=== PATIENT | female | born 1995 ===

== ENCOUNTER 2016-10-21 00:42 | Emergency (ER) | payer OTHER ==
[~2016-10-21] VITALS: Ht 172.7 cm; Wt 70.3 kg
[2016-10-21 00:56] VITALS: TEMP 36.7; Ht 172.7 cm; Wt 70.3 kg
[2016-10-21] MEDS ORDERED: XYLOCAINE 1%/SOD BICARB 20 ML VIAL INFIL ONE (01:15)
[2016-10-21] MEDS ORDERED: BCPILLS PO (01:24)
[2016-10-21 02:28] VITALS: BP 113/68; PULSE 53; O2SAT 99
--- NOTE | 2016-10-21 06:14 | EMERGENCY ROOM VISIT NOTE ---
ED Visit Note First contact with patient: 01:10 CHIEF COMPLAINT: Leg laceration HISTORY OF PRESENT ILLNESS: This 21-year-old female patient presents to the emergency department after cutting her left leg about one hour ago. The patient states that she had a switch blade in her pocket that engaged and cut through her clothing into her left leg. The bleeding has stopped. Denies weakness or numbness of the leg. The patient states that she took a picture of this and send it to her father who is a neurosurgeon in [place]. He felt it may need stitches and referred her to the ER. The patient rates the pain as dull and 4/10. The patient denies any other injuries. The patient's Tetanus shot is reportedly up to date. REVIEW OF SYSTEMS: A 6 system review of systems was completed with positives and pertinent negatives listed in the HPI. ALLERGIES: No known allergies MEDICATIONS: No chronic medications PMH: Otherwise healthy SOCIAL HISTORY: Student and lives locally PHYSICAL EXAM: Vital Signs: Reviewed Nurse's notes, vital signs stable. GENERAL : White female, in no acute distress, well-developed, well-nourished. SKIN: There is a 1.0 cm long laceration on the proximal aspect of the left thigh. The edges gape apart with traction. There is no foreign material in the wound and it looks clean. There is no significant bleeding. No deep structures such as tendons, bones, or significant blood vessels are seen in the base of the wound. Normal strength and movement of the left lower extremity. Capillary refill less than 2 seconds. Normal sensation to light and sharp touch. EMERGENCY DEPARTMENT COURSE: I examined the patient. Verbal consent was obtained to perform the procedure. Using sterile technique the wound was cleansed with Betadine. The area was sterilely draped. 3 ml of 1% buffered lidocaine was used to anesthetize the laceration on the left leg. Once the patient was anesthetized, the wound was copiously irrigated under pressure with sterile saline. The wound was explored and was as described above. The laceration was repaired using 2 simple interrupted 4-0 nylon sutures with the wound edges being well approximated. The patient tolerated the procedure well. Hemostasis was achieved. The area was cleaned with sterile saline and dressed with bacitracin ointment and bandage. Current/Historical Medications Scheduled Control Pills ( Control Pills), 1 TAB PO DAILY Allergies Coded Allergies: No Known Allergies (Unverified , 10/21/16) Vital Signs Date Time Temp Pulse Resp B/P Pulse Ox O2 Delivery O2 Flow Rate FiO2 10/21/16 02:28 53 18 113/68 99 10/21/16 00:56 36.7 63 16 124/68 100 Room Air Medications Administered Medications (Trade) Dose Ordered Sig/Joanna Route Start Time Stop Time Status Last Admin Dose Admin Lidocaine HCl (Buffered Lidocaine 1% Inj) 20 ml NOW ONCE INFIL 10/21/16 01:15 10/21/16 01:16 DC 10/21/16 01:36 20 ML Departure Information Impression Primary Impression: Laceration of leg Dispostion Home / Self-Care Condition GOOD Forms HOME CARE DOCUMENTATION FORM, IMPORTANT VISIT INFORMATION Patient Instructions My [facility], ED Scar Tips to Minimize Additional Instructions Keep wound clean and dry. Do not allow any crusting or dried blood to accumulate on sutures. If this occurs, use a mild soap/water on a Q-tip to clean the wound. Do not use Peroxide to clean the wound as this can delay healing Use an antibiotic ointment like Bacitracin for 3-4 days, then let wound dry. You may bathe and shower as normal, but DO NOT SOAK the wound. Suture removal in about 10 days with your Family Doctor or in the ER. Return sooner for any signs of infection, increasing redness, swelling, or drainage.
== END 2016-10-21 02:34 | disposition home or self-care (01) ==
LOC: C.EDB 00:43 → C.EDA 02:34
DX: S71.112A Laceration without foreign body, left thigh, initial encounter (principal); W26.0XXA Contact with knife, initial encounter; Z79.3 Long term (current) use of hormonal contraceptives

== ENCOUNTER → 2017-03-19 | Outpatient (CLI) | payer OTHER ==
[~2017-03-19] MED LIST: BCPILLS PO
--- NOTE | 2017-03-19 15:26 | DIAGNOSTIC IMAGING REPORT ---
R HAND MIN 3 VIEWS HISTORY: 22 years-old Female RIGHT HAND INJURY acute right hand pain status post trauma. Initial exam. COMPARISON: Right finger radiographs 04/01/2014 TECHNIQUE: 3 views of the right hand FINDINGS: There is no acute fracture, dislocation or significant degenerative changes. Soft tissues are unremarkable. IMPRESSION: No acute fracture or dislocation. The above report was generated using voice recognition software. It may contain grammatical, syntax or spelling errors. Electronically signed by: Addi Stein M.D. 03/19/2017 3:24 PM Dictated Date/Time: 03/19/2017 3:23 PM
== END | disposition home or self-care (01) ==
LOC: C.RDSM 15:30
PROVIDERS: ATTEND Internal Medicine
DX: S69.91XA Unspecified injury of right wrist, hand and finger(s), initial encounter (principal); X58.XXXA Exposure to other specified factors, initial encounter